=== PATIENT | female | born 1960 | race American Indian/Alaskan Native ===

== ENCOUNTER 2017-06-27 09:53 | Outpatient (CLI) | payer BC ==
--- NOTE | 2017-06-27 10:54 | XRay Report ---
Abdominal series: History: Abdominal pain. Findings: Cardiomegaly. Trachea is midline. No lung consolidation no acute changes. Stool in colon, predominantly ascending colon. No bowel distention or wall thickening. No radiopaque calculus or abnormal calcification. Impression: Essentially negative abdomen. No acute lung changes.
--- NOTE | 2017-06-27 10:56 | XRay Report ---
Chest with right RIBS: History: Back pain. Findings: No lytic or blastic lesion or fracture. Cardiomegaly. No acute lung changes. Suspected old with fractures and pleural thickening right chest. Impression: No evidence of purulent changes. No acute fracture.
== END 2017-06-27 09:54 | disposition home or self-care (01) ==
LOC: SPVIMAG 09:53
DX: I51.7 Cardiomegaly (principal); R10.31 Right lower quadrant pain; M54.9 Dorsalgia, unspecified
CPT/HCPCS: 74022